=== PATIENT | female | born 1985 | race Caucasian/White ===

== ENCOUNTER 2019-12-29 07:40 | Day surgery (SDC) | payer OTHER ==
[~2019-12-29] VITALS: Ht 175.3 cm; Wt 77.2 kg
[2019-12-29] VITALS (9 sets, daily range): BP systolic 100–118; BP diastolic 54–74; PULSE 61–78; TEMP 98.3–98.8
[2019-12-29] MEDS ORDERED: ZYRTEC 10MG10 MG PO (08:29)
[2019-12-29] MEDS ORDERED: FISH OIL PO (08:30)
--- NOTE | 2019-12-29 09:15 | NUR ---
Pt transferred via cart to PACU for anesthetic block.
[2019-12-29] MEDS ORDERED: [UNRECOGNIZED DRUG - OTHER] PO (09:23)
[2019-12-29] MEDS ORDERED: [UNRECOGNIZED DRUG - OTHER] PO (09:25)
[2019-12-29] MEDS ORDERED: BETAINE PO (09:28)
[2019-12-29] MEDS ORDERED: [UNRECOGNIZED DRUG - OTHER] PO (09:30)
[2019-12-29] MEDS ORDERED: [UNRECOGNIZED DRUG - MIXTURE] PO (09:31)
[2019-12-29] MEDS ORDERED: [UNRECOGNIZED DRUG - OTHER] PO (09:34)
[2019-12-29] MEDS ORDERED: VITAMIN C PO (09:38)
[2019-12-29] MEDS ORDERED: OLIVE LEAF EXTRACT PO (09:39)
--- NOTE | 2019-12-29 10:37 | NUR ---
Pt transferred via cart to PACU for anesthetic block.
--- NOTE | 2019-12-29 13:20 | NUR ---
TO RM 2 PER CART FROM PACU. DROWSY AND ORIENTED X3, C/O PAIN 2/10 AND DENIES NAUSEA. 02 SAT OFF O2 93% AND 97% ON 2L PER NC. PETTY SET OVER INCISION SITES CLEAN DRY INTACT.
--- NOTE | 2019-12-29 13:35 | NUR ---
RECEIVED WATER AND TOOK A FEW SIPS AND FELL BACK TO SLEEP.
--- NOTE | 2019-12-29 14:05 | NUR ---
NO CHANGES AWAKENS EASILY AND FALLS BACK TO SLEEP.
[2019-12-29] MEDS ORDERED: ULTRAM 50MG TAB50 MG PO (14:41)
--- NOTE | 2019-12-29 14:45 | NUR ---
CONTINUES TO STATE PAIN IS ONLY A 2/10. RECEIVED APPLE SAUCE.
--- NOTE | 2019-12-29 15:30 | NUR ---
AMBULATED TO BATHROOM WITH ASSIST. VOIDED AND AMBULATED BACK TO .
--- NOTE | 2019-12-29 15:45 | NUR ---
RECEIVED SPRITE AND 2ND APPLE SAUCE.
--- NOTE | 2019-12-29 15:50 | NUR ---
PATIENT SLEEPING QUIETLY
--- NOTE | 2019-12-29 16:05 | NUR ---
RECEIVED DISCHARGE INSTRUCTIONS AND VERBALIZED UNDERSTANDING. DISCONTINUED IV AND INT-CATHETER INTACT PATIENT CALLED FOR RIDE.
--- NOTE | 2019-12-29 16:20 | NUR ---
DISCHARGED PER WC BY NURSING STAFF TO PRIVATE CAR IN CARE OF - IVANA.
== END 2019-12-29 16:55 | disposition home or self-care (01) ==
LOC: SDCO 07:40 → EDSEX 09:30 → SDCO 09:30
DX: K40.90 Unilateral inguinal hernia, without obstruction or gangrene, not specified as recurrent (principal); K42.9 Umbilical hernia without obstruction or gangrene; K90.0 Celiac disease; Z85.820 Personal history of malignant melanoma of skin; Z79.899 Other long term (current) drug therapy
CPT/HCPCS: C1781; J0690; J1170; J1885; J2250; J2405; J2704; J2795; J3010; J7120

== ENCOUNTER → 2020-10-16 | Outpatient (CLI) | payer OTHER ==
[~2020-10-16] MED LIST: BETAINE PO; FISH OIL PO; OLIVE LEAF EXTRACT PO; ULTRAM 50MG TAB50 MG PO; VITAMIN C PO; ZYRTEC 10MG10 MG PO; [UNRECOGNIZED DRUG - MIXTURE] PO; [UNRECOGNIZED DRUG - OTHER] PO; [UNRECOGNIZED DRUG - OTHER] PO; [UNRECOGNIZED DRUG - OTHER] PO; [UNRECOGNIZED DRUG - OTHER] PO
== END ==
LOC: COL.LAB 12:09
DX: T14.8XXA Other injury of unspecified body region, initial encounter (principal)

== ENCOUNTER 2020-10-20 22:45 | Emergency (ER) | payer OTHER ==
[~2020-10-20] VITALS: Ht 175.3 cm; Wt 79.1 kg
[2020-10-20 22:51] VITALS: TEMP 98.1
[2020-10-20 23:09] LABS: BASO # 0.1 (0.0-0.2); BASO % 0.7 % (0.0-2.0); EOS # 0.2 (0.0-0.7); EOS % 3.1 % (0-4.0); GRAN # 4.5 (1.4-6.5); GRAN % 59.1 % (42.2-75.2); HEMATOCRIT 37.6 % (37.0-47.0); HEMOGLOBIN 11.5 g/dl (12.5-16.0); LYMPH # 2.3 (1.2-3.4); LYMPH % 30.4 % (20.0-51.0); MEAN CELL VOLUME 72 fl (80.0-100.0); MEAN CORPUSCULAR HEMOGLOBIN 22 pg (27.0-31.0); MEAN CORPUSCULAR HGB CONC 31 g/dl (33.0-37.0); MEAN PLATELET VOLUME 10.4 fl (7.4-10.4); MONO # 0.5 (0.1-0.6); MONO % 6.4 % (1.7-9.3); PLATELET COUNT 341 K/mm3 (130-400); RED BLOOD COUNT 5.21 M/mm3 (4.10-5.30); REDCELL DISTRIBUTION WIDTH-CV 13.9 % (11.5-14.5)
[2020-10-20 23:17] LABS: ALANINE AMINOTRANSFERASE 12 U/L (4-34); ALBUMIN 4.2 gm/dL (3.5-5.0); ALKALINE PHOSPHATASE 60 U/L (50-136); ANION GAP 7 mmol/L (7-16); AST,SGOT 17 U/L (15-37); BILIRUBIN,TOTAL 0.4 mg/dL (0.0-1.0); BLOOD UREA NITROGEN 19 mg/dL (7-17); CARBON DIOXIDE 26 mmol/L (22-30); CHLORIDE 105 mmol/L (98-107); CREATININE, serum 0.81 (0.52-1.25); GLUCOSE 103 mg/dL (74-106); POTASSIUM 3.9 mmol/L (3.4-5.0); SODIUM 138 mmol/L (137-145); TOTAL PROTEIN 7.2 gm/dL (6.4-8.2)
[2020-10-20 23:29] LABS: TROPONIN-I < 0.012 ng/mL (0.000-0.035)
[2020-10-21 00:32] VITALS: BP 130/69; PULSE 81
== END 2020-10-21 00:09 | disposition home or self-care (01) ==
LOC: COL.ER 22:45
PROVIDERS: Physician Assistant
DX: I24.9 Acute ischemic heart disease, unspecified (principal); F41.9 Anxiety disorder, unspecified; D64.9 Anemia, unspecified; Z20.822 Contact with and (suspected) exposure to COVID-19